=== PATIENT | male | born 1960 | race Caucasian/White ===

== ENCOUNTER 2017-06-16 21:22 | Emergency (ER) | payer MEDICARE ==
[2017-06-16] MEDS ORDERED: ACETAMINOPHEN 1,000 MG/100 ML BTL IVPB ONE (21:47)
--- NOTE | 2017-06-16 21:59 | Emergency Department Record ---
History of Present Illness - General Chief Complaint: Back Pain/Injury Stated Complaint: BACK PAIN Time Seen by Provider: 06/16/17 21:23 - History of Present Illness Initial Comments: For H and P please see chart on [facility] same day of service. Onset/Timin -: Hour(s) Severity scale (1-10): 8 Quality: Aching Consistency: Constant Context: Other - Related Data Home Medications Medication Instructions Recorded Confirmed Last Taken Cyclobenzaprine HCl [Flexeril] 10 mg PO TID PRN 06/16/17 06/16/17 Unknown Hydrocodone/Acetaminophen [[place] 1 tab PO Q6H 06/16/17 06/16/17 Unknown 7.5-325 Tablet] Pravastatin Sodium [Pravachol] 80 mg PO DAILY 06/16/17 06/16/17 Unknown Warfarin Sodium [Coumadin] 3 mg PO DAILY 06/16/17 06/16/17 Unknown Previous Rx's Medication Instructions Recorded Lidocaine Patch [Lidoderm] 1 ea TOP DAILY #10 patch 06/16/17 Allergies Allergy/AdvReac Type Severity Reaction Status Date / Time No Known Drug Allergies Allergy Verified 06/16/17 21:52 Travel Screening - Travel/Exposure Within Last 30 Days Have you traveled within the last 30 days?: No Past Medical History - SOCIAL HISTORY Smoking Status: Current every day smoker Alcohol Use: Occasional Drug Use: None - RESPIRATORY Hx Respiratory Disorders: Yes Hx COPD: Yes - CARDIOVASCULAR Hx Cardio Disorders: Yes Hx Heart Attack: Yes Hx Pacemaker/Defib: Yes Comment:: Artificial Valve - NEURO Hx Neuro Disorders: Yes Hx TIA: Yes - GI Hx GI Disorders: No - Hx Genitourinary Disorders: No - ENDOCRINE Hx Endocrine Disorders: No - MUSCULOSKELETAL Hx Musculoskeletal Disorders: Yes Hx Arthritis: Yes - PSYCH Hx Psych Problems: No - HEMATOLOGY/ONCOLOGY Hx Hematology/Oncology Disorders: No Family Medical History Any Significant Family History?: Yes *Cancer Comment: Aunt Hx Diabetes: Father Hx Heart Disease: Father *Heart Comment: Aunt Course Vital Signs 06/16/17 21:23 Temperature 97.7 F Pulse Rate 78 Respiratory 18 Rate Blood Pressure 141/100 Pulse Ox 97 - Reevaluation(s) Reevaluation #1: The patient is doing a lot better at this time. He is up walking with no limping or leg weakness. I did explain to him that the lab work and xray do not demonstrate any significant abnormality that could be causing the pain. We will place him on Lidoderm patches and have him see his PCP next week as planned. 06/16/17 22:04 Medical Decision Making - Data Complexity MDM Data: Labs Ordered and/or Reviewed, X-Ray Ordered and/or Reviewed - Lab Data Result diagrams: 06/16/17 22:19 06/16/17 22:19 - Radiology Data Radiology results: Report reviewed (LS Spine: DJD but no acute changes.) Disposition Disposition: Discharge Clinical Impression: Chronic back pain Qualifiers: Back pain location: back pain in unspecified location Back pain laterality: unspecified Qualified Code(s): M54.9 - Dorsalgia, unspecified Disposition: Home, Self-Care Condition: (2) Stable Instructions: Chronic Back Pain (ED) Additional Instructions: Please continue your regular medicines and add the Lidoderm as directed. Please see your family doctor for recheck next week and return to the ER for any worsening pain, leg weakness, numbness, or any bowel or bladder issues. Prescriptions: Lidocaine Patch [Lidoderm] 1 ea TOP DAILY #10 patch Forms: Patient Portal Access Time of Disposition: 22:07 Quality - Quality Measures Quality Measures: N/A - Blood Pressure Screening View Details: Yes Does Patient Have Any of the Following: Active Dx of HTN Blood Pressure Classification: Hypertensive Reading Systolic Measurement: 141 Diastolic Measurement: 100 Screening for High Blood Pressure: Patient Exclusion, Hx of HTN [G9744]
[2017-06-16 22:23] LABS: HEMOGLOBIN 14.1 gm/dl (14.0-18.0); MEAN CORPUSCULAR HEMOGLOBIN 30.5 pg (27-33); RED BLOOD COUNT 4.62 M/uL (4.40-5.70); WHITE BLOOD COUNT W/O DIFF 7.4 K/uL (4.2-12.2)
[2017-06-16 22:24] LABS: BASO % 0.5 % (0-6); EOS % 2.3 % (0-6); GRAN % 61.6 % (47-80); HEMATOCRIT 41.8 % (42.0-52.0); LYMPH % 26.4 % (16-45); MEAN CELL VOLUME 90.5 fl (81-97); MEAN CORPUSCULAR HGB CONC 33.7 g/dl (32-36); MEAN PLATELET VOLUME 10.7 fl (7.4-10.4); MONO % 9.2 % (0-9); PLATELET COUNT 167 K/uL (130-400)
[2017-06-16 22:27] LABS: INR 3.2; PARTIAL THROMBOPLASTIN TIME 65.5 SECONDS (24.5-39.1); PROTHROMBIN TIME (PATIENT) 34.8 SECONDS (9.5-12.1)
[2017-06-16 22:29] LABS: BLOOD UREA NITROGEN 13 mg/dL (6-20); CREATININE 1.1 mg/dL (0.7-1.2); EST GLOMERULAR FILTRATION RATE > 60 mL/min; GLUCOSE,RANDOM 121 mg/dL (74-109)
--- NOTE | 2017-06-17 14:23 | RADIOLOGY REPORT ---
EXAM: LUMBAR SPINE, THREE VIEWS HISTORY: PAIN, NO TRAUMA. TECHNIQUE: Three views of the lumbar spine were obtained. Comparison: None. Encounter: Initial. FINDINGS: There is normal alignment of the lumbar vertebral bodies. The vertebral body heights are maintained. Mild disk space narrowing at L5-S1. Moderate hypertrophic spurring. The sacroiliac joints are symmetric. Total bilateral hip arthroplasties are noted. IMPRESSION: THERE ARE MILD DEGENERATIVE CHANGES OF THE LUMBAR SPINE. JOB NUMBER: [id number] MTDD
== END 2017-06-16 22:23 | disposition home or self-care (01) ==
LOC: ER 21:22
DX: G89.29 Other chronic pain (principal); M54.5 Low back pain; J44.9 Chronic obstructive pulmonary disease, unspecified; I10 Essential (primary) hypertension; M79.651 Pain in right thigh; I25.2 Old myocardial infarction; F17.210 Nicotine dependence, cigarettes, uncomplicated
CPT/HCPCS: 72100; 80048; 85025; 85610; 85730; 96374; 99284

== ENCOUNTER 2018-04-29 18:06 | Emergency (ER) | payer MEDICARE ==
[2018-04-29] MEDS ORDERED: METHYLPREDNISOLONE PF 125MG/VIAL IVP ONE (18:24)
[2018-04-29] MEDS ORDERED: DIPHENHYDRAMINE HCL 50 MG/ML VIAL IVP ONE (18:24)
[2018-04-29] MEDS ORDERED: RANITIDINE HCL 50 MG in 0.9 % SODIUM CHLORIDE 100ML 100 ML IVPB ONE (18:25)
--- NOTE | 2018-04-29 18:30 | Emergency Department Record ---
History of Present Illness - General Chief complaint: Allergic Reaction Stated complaint: ALERGIC REACTION/RASH Time Seen by Provider: 04/29/18 18:23 Source: Patient, Family Mode of Arrival: Ambulatory Limitations: No limitations - History of Present Illness Initial Comments: 58 yo male presents with an itchy rash that started in the last 2 hours. The rash started on the arms then the chest. It has now spread elsewhere including the back and the legs. No cough, shortness of breath, swelling of the lips, tough, or throat. He started Gabapentin about 2 weeks ago. Otherwise, no other immediately new medications or known exposures. He denies a similar reaction or rash in the past. MD Complaint: Allergic reaction, Hives Onset/Timin -: Hour(s) (2) Treatment Prior to Arrival: Benadryl - Related Data Home Medications Medication Instructions Recorded Confirmed Last Taken Albuterol Sulfate [Ventolin Hfa] 1 - 2 puff IH .EVERY 4-6 HOURS PRN 04/29/1804/28/18 Atorvastatin Calcium [Lipitor] 20 mg PO QHS 04/29/18 04/29/18 04/28/18 Clopidogrel Bisulfate [Clopidogrel] 75 mg PO DAILY 04/29/18 04/29/18 04/28/18 Cyclobenzaprine HCl [Flexeril] 10 mg PO TID 04/29/18 04/29/18 04/28/18 Gabapentin [Neurontin] 100 mg PO TID 04/29/18 04/29/18 04/28/18 Hydrocodone/Acetaminophen [[place] 1 each PO Q6H PRN 04/29/18 04/29/18 04/28/18 7.5-325 Tablet] Sitagliptin Phosphate [Januvia] 100 mg PO DAILY 04/29/18 04/29/18 04/28/18 Warfarin Sodium [Coumadin] 2 mg PO ASDIR 04/29/18 04/29/18 04/28/18 Warfarin Sodium [Coumadin] 4 mg PO ASDIR 04/29/18 04/29/18 04/28/18 Previous Rx's Medication Instructions Recorded Cetirizine HCl [Zyrtec] 10 mg PO DAILY #20 cap 04/29/18 Prednisone [Prednisone 20Mg] 20 mg PO DAILY #7 tab 04/29/18 Ranitidine HCl [Zantac] 150 mg PO BID #14 tablet 04/29/18 Allergies Allergy/AdvReac Type Severity Reaction Status Date / Time No Known Drug Allergies Allergy Verified 06/16/17 21:52 Travel Screening - Travel/Exposure Within Last 30 Days Have you traveled within the last 30 days?: No - Travel/Exposure Within Last Year Have you traveled outside the [place] in the last year?: No - Additonal Travel Details Have you been exposed to anyone with a communicable illness?: No - Travel Symptoms Symptom Screening: None Review of Systems Constitutional: Denies: Chills, Fever, Malaise, Weakness Eyes: Denies: Eye discharge ENT: Denies: Congestion, Throat pain Respiratory: Denies: Cough, Dyspnea Cardiovascular: Denies: Chest pain, Syncope Endocrine: Denies: Fatigue Gastrointestinal: Denies: Abdominal pain, Diarrhea, Nausea, Vomiting Genitourinary: Denies: Dysuria, Frequency, Hematuria Musculoskeletal: Reports: Myalgia (chronic). Denies: Arthralgia Skin: Reports: Change in color, Pruritus, Rash Neurological: Denies: Headache Psychiatric: Denies: Anxiety Hematological/Lymphatic: Denies: Blood Clots, Easy bleeding, Easy bruising Past Medical History - SOCIAL HISTORY Smoking Status: Current every day smoker Alcohol Use: None Drug Use: None - RESPIRATORY Hx Respiratory Disorders: Yes Hx COPD: Yes - CARDIOVASCULAR Hx Cardio Disorders: Yes Hx Heart Attack: Yes Hx Pacemaker/Defib: Yes Comment:: Artificial Valve - NEURO Hx Neuro Disorders: Yes Hx TIA: Yes - GI Hx GI Disorders: No - Hx Genitourinary Disorders: No - ENDOCRINE Hx Endocrine Disorders: No - MUSCULOSKELETAL Hx Musculoskeletal Disorders: Yes Hx Arthritis: Yes - PSYCH Hx Psych Problems: No - HEMATOLOGY/ONCOLOGY Hx Hematology/Oncology Disorders: No Family Medical History Any Significant Family History?: No *Cancer Comment: Aunt Hx Diabetes: Father Hx Heart Disease: Father *Heart Comment: Aunt Physical Exam - General General Appearance: Alert, Oriented x3, Cooperative, No acute distress, Other ( No acute distress, well appearing) Limitations: No limitations - Head Head exam: Atraumatic, Normal inspection - Eye Eye exam: Normal appearance, PERRL. negative: Conjunctival injection, Scleral icterus - ENT ENT exam: Normal exam, Mucous membranes moist, Normal orophraynx. negative: Mucous membranes dry Ear exam: Normal external inspection Nasal Exam: Normal inspection Mouth exam: Normal external inspection Teeth exam: Normal inspection Throat exam: Normal inspection. negative: Tonsillar erythema, Tonsillomegaly, Tonsillar exudate, R peritonsillar mass, L peritonsillar mass - Neck Neck exam: Normal inspection, Full ROM. negative: Tenderness - Respiratory Respiratory exam: Normal lung sounds bilaterally. negative: Decreased breath sounds, Prolonged expiratory, Rhonchi, Stridor, Wheezes - Cardiovascular Cardiovascular Exam: Regular rate, Normal rhythm, Normal heart sounds - GI/Abdominal GI/Abdominal exam: Soft. negative: Tenderness - Rectal Rectal exam: Deferred - exam: Deferred - Extremities Extremities exam: Full ROM. negative: Normal inspection, Tenderness - Back Back exam: Denies: Normal inspection, CVA tenderness (R), CVA tenderness (L) - Neurological Neurological exam: Alert, Oriented X3. negative: Altered - Psychiatric Psychiatric exam: Normal affect, Normal mood. negative: Agitated, Anxious - Skin Skin exam: Erythema, Intact, Rash, Urticaria. negative: Cyanosis, Diaphoretic, Mottled, Petechiae, Vesicles Type of lesion: Rash Distribution of rash: Abdomen, Back, Thorax, RUE, LUE, RLE, LLE Description of rash: Urticarial. negative: Crusting, Discharge, Papular, Petechial, Purpuic, Tenderness, Vesicular Course Vital Signs 04/29/18 18:10 Temperature 98.0 F Pulse Rate 83 Respiratory 16 Rate Blood Pressure 162/93 Pulse Ox 98 - Reevaluation(s) Reevaluation #1: I discussed treatment for the rash with medications including steroids. He is a diabetic. He is typically well controlled with most recent sugar of 130. I discussed that temporarily his blood sugar will likely run higher. He understands and will monitor his blood sugars more closely. 04/29/18 18:27 04/29/18 18:56 The patient responded well to the initial treatment We discussed home care, dosing, timing, reasons to return to the ED over the next few days He is to call his PCP as well to discuss his home medications Disposition Clinical Impression: Urticaria Allergic reaction Qualifiers: Encounter type: initial encounter Qualified Code(s): T78.40XA - Allergy, unspecified, initial encounter Condition: (1) Good Instructions: Urticaria (ED) Additional Instructions: Call your doctor for the next available follow up appointment Return to the ER for a recheck if worse, any new concerns or questions Take the prescriptions provided as directed In addition to the prescriptions you may take 25-50mg of Benadryl every 6 hours Take the Zantac twice daily Take the Prednisone once daily Take the Zyrtec once daily Review this ER visit and the tests performed with your family doctor You will need to monitor your blood sugar 2-3 times daily for the next week as it will run higher with the steroids Return if you are not able to control your blood sugars Prescriptions: Cetirizine HCl [Zyrtec] 10 mg PO DAILY #20 cap Prednisone [Prednisone 20Mg] 20 mg PO DAILY #7 tab Ranitidine HCl [Zantac] 150 mg PO BID #14 tablet Forms: Patient Portal Access Time of Disposition: 18:57 Quality - Quality Measures Quality Measures: N/A - Blood Pressure Screening Does Patient Have Any of the Following: Active Dx of HTN Blood Pressure Classification: Hypertensive Reading Systolic Measurement: 162 Diastolic Measurement: 93 Screening for High Blood Pressure: Patient Exclusion, Hx of HTN [G9744]
== END 2018-04-29 19:34 | disposition home or self-care (01) ==
LOC: ER 18:06
DX: L50.0 Allergic urticaria (principal); J44.9 Chronic obstructive pulmonary disease, unspecified; I10 Essential (primary) hypertension; I25.2 Old myocardial infarction; E11.9 Type 2 diabetes mellitus without complications; Z79.84 Long term (current) use of oral hypoglycemic drugs; F17.210 Nicotine dependence, cigarettes, uncomplicated; Z79.01 Long term (current) use of anticoagulants
CPT/HCPCS: 96365; 96375; 99284; J1200; J2780; J2930

== ENCOUNTER 2018-06-18 19:57 | Emergency (ER) | payer MEDICARE ==
[2018-06-18] MEDS ORDERED: ASPIRIN 81 MG CHEWABLE TABLET PO ONE (20:15)
[2018-06-18] MEDS ORDERED: IPRATROPIUM/ALBUTEROL (0.5MG/3MG) NEB INH ONE (20:15)
--- NOTE | 2018-06-18 20:16 | Emergency Department Record ---
History of Present Illness - General Chief complaint: Cold Stated complaint: CHEST COLD Time Seen by Provider: 06/18/18 20:14 Source: Patient Mode of Arrival: Ambulatory Limitations: No limitations - History of Present Illness Initial comments: 58 yo male presents to ED for evaluation of chest discomfort symptoms for the past 1 week. Patient reports mild cough symptoms, denies fevers, chills, or vomiting symptoms. Patient does report history of COPD, reports that he stopped smoking in November of last year. Patient also reports AL x 3 previously s/p bypass grafts, valve replacement for which he takes Warfarin. Patient reports "this pain doesn't feel like my heart, feels like maybe I have pneumonia". Patient denies pain with deep inspiration/history of DVT/PE. MD complaint: Other Onset/Timin -: Week(s) Location: R ear, L ear Severity: Mild Severity scale (1-10): 4 Quality: Aching Consistency: Constant Improves with: None Worsens with: Movement Context- Ear: Recent illness Associated Symptoms: Cough - Related Data Home Medications Medication Instructions Recorded Confirmed Last Taken Ranitidine HCl [Zantac] 150 mg PO DAILY PRN 06/18/18 06/18/18 Unknown Previous Rx's Medication Instructions Recorded Prednisone [Prednisone 20Mg] 20 mg PO DAILY #7 tab 04/29/18 Doxycycline Hyclate 200 mg PO BID #18 cap 06/18/18 Allergies Allergy/AdvReac Type Severity Reaction Status Date / Time gabapentin Allergy HIVES Verified 06/18/18 20:14 Travel Screening - Travel/Exposure Within Last 30 Days Have you traveled within the last 30 days?: No - Travel/Exposure Within Last Year Have you traveled outside the [place] in the last year?: No - Additonal Travel Details Have you been exposed to anyone with a communicable illness?: No - Travel Symptoms Symptom Screening: None Review of Systems Constitutional: Denies: Chills, Fever, Malaise, Night sweats Eyes: Denies: Eye discharge, Eye pain ENT: Reports: Congestion, Ear pain. Denies: Epistaxis Respiratory: Reports: Cough. Denies: Dyspnea Cardiovascular: Reports: Chest pain. Denies: Dyspnea on exertion, Palpitations Endocrine: Denies: Fatigue, Heat or cold intolerance Gastrointestinal: Denies: Abdominal pain, Nausea, Vomiting Genitourinary: Denies: Incontinence, Retention Musculoskeletal: Denies: Arthralgia, Back pain Skin: Denies: Bruising, Change in color Neurological: Denies: Abnormal gait, Confusion, Headache, Seizure Psychiatric: Denies: Anxiety Hematological/Lymphatic: Reports: Easy bleeding, Easy bruising. Denies: Anemia, Blood Clots Past Medical History - SOCIAL HISTORY Smoking Status: Former smoker Alcohol Use: Rare Drug Use: None - RESPIRATORY Hx Respiratory Disorders: Yes Hx COPD: Yes - CARDIOVASCULAR Hx Cardio Disorders: Yes Hx Heart Attack: Yes Hx Pacemaker/Defib: Yes Comment:: Artificial Valve - NEURO Hx Neuro Disorders: Yes Hx TIA: Yes - GI Hx GI Disorders: No - Hx Genitourinary Disorders: No - ENDOCRINE Hx Endocrine Disorders: No - MUSCULOSKELETAL Hx Musculoskeletal Disorders: Yes Hx Arthritis: Yes - PSYCH Hx Psych Problems: No - HEMATOLOGY/ONCOLOGY Hx Hematology/Oncology Disorders: No Family Medical History Any Significant Family History?: Yes *Cancer Comment: Aunt Hx Diabetes: Father Hx Heart Disease: Father *Heart Comment: Aunt Physical Exam - General General Appearance: Alert, Oriented x3, Cooperative, Mild distress Limitations: No limitations - Head Head exam: Atraumatic, Normocephalic, Normal inspection Head exam detail: negative: Abrasion, Contusion, Guerrier's sign, General tende rness, Hematoma, Laceration - Eye Eye exam: Normal appearance. negative: Conjunctival injection, Periorbital swelling, Periorbital tenderness, Scleral icterus - ENT Ear exam: negative: Auricular hematoma, Auricular trauma Nasal Exam: negative: Active bleeding, Discharge, Dried blood, Foreign body Mouth exam: negative: Drooling, Laceration, Muffled voice, Tongue elevation - Neck Neck exam: Normal inspection. negative: Meningismus, Tenderness - Respiratory Respiratory exam: Decreased breath sounds. negative: Rales, Respiratory distress, Rhonchi, Stridor, Wheezes - Cardiovascular Cardiovascular Exam: Regular rate, Normal rhythm, Normal heart sounds - GI/Abdominal GI/Abdominal exam: Soft. negative: Rebound, Rigid, Tenderness - Rectal Rectal exam: Deferred - exam: Deferred - Extremities Extremities exam: Normal inspection. negative: Pedal edema, Tenderness - Back Back exam: Denies: CVA tenderness (R), CVA tenderness (L) - Neurological Neurological exam: Alert, Normal gait, Oriented X3 - Psychiatric Psychiatric exam: Normal affect, Normal mood - Skin Skin exam: Normal color. negative: Abrasion Type of lesion: negative: abrasion Course Vital Signs 06/18/18 20:06 Temperature 98.3 F Pulse Rate 97 H Respiratory 20 Rate Blood Pressure 178/88 Pulse Ox 97 - Reevaluation(s) Reevaluation #1: 06/18/18 20:23 EKG: NSR 93 Normal axis, normal intervals No acute ST-T wave changes are present. Reevaluation #2: 06/18/18 20:57 Laboratory studies were reviewed and are grossly unremarkable for an acute process. INR 2.2. Reevaluation #3: 06/18/18 21:16 Following discussion with the patient regarding transfer for further cardiac, patient reports that they want to leave AMA at this time. Risks of , permanent impairment, or worsening of their current condition were discussed as well as the benefit of transfer for further cardiac evaluation of their presenting symptoms. Patient verbalizes understanding of all risks and benef its, desires to leave AMA despite these risks. Based on my examination, the patient is alert, oriented, and answers all questions appropriately. Patient appears to have the capacity to make rational decisions based on my examination. Patients family was present for the duration of our discussion as well. Patient was encouraged to return to the ED immediately if they change their mind about treatment and want to be re-evaluated. Will treat with Doxycycline and prednisone (patient takes daily) for likely URI/Bronchitis. Patient appears stable for discharge AMA at this time. Medical Decision Making - Lab Data Result diagrams: 06/18/18 20:23 06/18/18 20:23 Disposition Disposition: Other Clinical Impression: Atypical chest pain URI (upper respiratory infection) Qualifiers: URI type: unspecified URI Qualified Code(s): J06.9 - Acute upper respiratory infection, unspecified Disposition: Against Medical Advice Condition: (2) Stable Instructions: Upper Respiratory Infection (ED) Additional Instructions: Return to ED if your symptoms worsen or if you have any concerns. Doxycycline and prednisone as directed. Follow-up with your family doctor in 3-5 days as directed. Prescriptions: Doxycycline Hyclate 200 mg PO BID #18 cap Forms: Patient Portal Access Time of Disposition: 21:15 Quality - Quality Measures Quality Measures: N/A - Blood Pressure Screening Does Patient Have Any of the Following: Active Dx of HTN Blood Pressure Classification: Pre-Hypertensive BP Reading Systolic Measurement: 178 Diastolic Measurement: 88 Screening for High Blood Pressure: Patient Exclusion, Hx of HTN [G9744] Pre-Hypertensive Follow-up Interventions: Referral to alternative/primary care provider.
[2018-06-18 20:29] LABS: ABSOLUTE NEUTROPHIL COUNT 5.96; BASO % 0.4 % (0-6); EOS % 1.1 % (0-6); GRAN % 72.2 % (47-80); HEMATOCRIT 40.3 % (42.0-52.0); HEMOGLOBIN 13.2 gm/dl (14.0-18.0); LYMPH % 17.4 % (16-45); MEAN CELL VOLUME 87.4 fl (81-97); MEAN CORPUSCULAR HEMOGLOBIN 28.6 pg (27-33); MEAN CORPUSCULAR HGB CONC 32.8 g/dl (32-36); MEAN PLATELET VOLUME 10.5 fl (7.4-10.4); MONO % 8.9 % (0-9); PLATELET COUNT 180 K/uL (130-400); RED BLOOD COUNT 4.61 M/uL (4.40-5.70); RED CELL DISTRIBUTION WIDTH 14.7 % (11.5-14.5); WHITE BLOOD COUNT W/O DIFF 8.2 K/uL (4.2-12.2)
[2018-06-18 20:42] LABS: INR 2.2; PROTHROMBIN TIME (PATIENT) 22.1 SECONDS (9.5-12.1)
[2018-06-18 20:43] LABS: BLOOD UREA NITROGEN 17 mg/dL (6-20); CREATININE 1.1 mg/dL (0.7-1.2); EST GLOMERULAR FILTRATION RATE > 60 mL/min
[2018-06-18 20:44] LABS: TOTAL PROTEIN 7.8 g/dL (6.6-8.7)
[2018-06-18 20:46] LABS: GLUCOSE,RANDOM 155 mg/dL (74-109)
[2018-06-18 20:48] LABS: ALB/GLOB RATIO 1.3 (1.1-1.8); ALBUMIN 4.4 g/dL (4.0-5.0); ALT/SGPT 22 U/L (<41); AST/SGOT 21 U/L (10.0-50.0)
[2018-06-18 20:49] LABS: ALKALINE PHOSPHATASE 57 U/L (40-129)
[2018-06-18] MEDS ORDERED: DOXYCYCLINE HYCLATE 100 MG CAPSULE PO ONE (21:13)
[2018-06-18] MEDS ORDERED: PREDNISONE 20 MG TAB PO ONE (21:13)
--- NOTE | 2018-06-20 10:24 | RADIOLOGY REPORT ---
EXAM: CHEST 2 VIEWS HISTORY: CHEST PAIN, COUGH, CHEST PRESSURE. TECHNIQUE: PA and lateral views. COMPARISON: None. FINDINGS: Post-op sternotomy. Pacemaker in place. Minor linear fibrosis or discoid atelectasis right mid lung. No definite acute alveolar infiltrate seen. No pleural effusion or pneumothorax evident. Prominent spurring in the mid to lower thoracic spine. Lungs appear mildly hyperinflated, particularly on the lateral view. IMPRESSION: 1. POST-OP STERNOTOMY AND PACEMAKER IN PLACE. 2. LUNGS APPEAR SOMEWHAT HYPERINFLATED, PARTICULARLY ON THE LATERAL VIEW. 3. MILD LINEAR FIBROSIS OR DISCOID ATELECTASIS RIGHT MID LUNG. 4. PROMINENT SPURRING IN THE MID TO LOWER THORACIC SPINE. JOB NUMBER: [id number] [facility]
== END 2018-06-18 21:27 | disposition left against medical advice (07) ==
LOC: ER 19:57
DX: R07.89 Other chest pain (principal); J06.9 Acute upper respiratory infection, unspecified; J44.9 Chronic obstructive pulmonary disease, unspecified; I25.2 Old myocardial infarction; Z87.891 Personal history of nicotine dependence; Z79.01 Long term (current) use of anticoagulants
CPT/HCPCS: 71046; 80053; 84484; 85025; 85610; 93005; 93010; 94640; 99284